=== PATIENT | female | born 1965 | race Caucasian/White ===

== ENCOUNTER → 2017-11-05 | Day surgery (SDC) | payer BC ==
--- NOTE | 2017-11-08 15:21 | PATH ---
Surgical Pathology Report Patient Name: DELL WILBURN [facility]. Rec. #: [id number] /Age/Gender: 1965 (Age: 51) / F Account: [id number] Location: RADIOLOGY ULRAS Taken: 11/05/2017 Received: 11/05/2017 Reported: 11/08/2017 Physicians: Montana Yepez M.D. Specimen(s) Received RIGHT BREAST 11:00 3.37 CM Clinical History Palpable mass Mammographic findings: Highly suspicious/malignant Ultrasound findings: Highly suspicious/malignant Final Diagnosis RIGHT BREAST MASS, 11:00, ULTRASOUND GUIDED BIOPSY: INVASIVE DUCTAL CARCINOMA, MODERATELY DIFFERENTIATED. DUCTAL CARCINOMA IN SITU (DCIS), INTERMEDIATE NUCLEAR GRADE, CRIBRIFORM PATTERN, WITH NECROSIS. INVASIVE CARCINOMA MEASURES AT LEAST 1.5CM, MEASURED ON THIS SLIDE. Results of Estrogen Receptor (ER) and Progesterone Receptor (MS) studies performed on block "1" at [facility] are as follows: ER (clone [id number] mouse monoclonal antibody by [employer]): 95% nuclear staining with strong intensity (Positive). MS (clone16 mouse monoclonal antibody by Leica): 86% nuclear staining with strong intensity (Positive). Positive and negative controls (internal if applicable) show appropriate results. Formalin fixation and cold ischemic times are within current ASCO/CAP recommendations for ER, MS and Her2 testing. Comment: Immunohistochemical stain E-Cadherin performed and interpreted at [facility] highlighted the tumor cells, consistent with invasive ductal carcinoma. Reports for Her 2 and Ki-67 to follow. Intradepartmental case reviewed with consensus on diagnosis, November 08, 2017. Electronically Signed Nikolas Medina M.D. Addendum Reported: 11/09/2017 Addendum Diagnosis Biomarker Studies Results of Her2 (IHC) & Ki-67 studies performed on this specimen at [place], [place] ([id number]) interpreted at [facility] are as follows: Her2 IHC (EP3 from [employer], formerly known as [id number], using Monzon Polymer Refine detection kit): 3+ (positive) Ki-67: 40~50% (high proliferative index) Nikolas Medina M.D. Gross Description Received in formalin labeled "right 11:00," are 4 grossman-yellow, cylindrical portions of fibroadipose tissue ranging from 0.4-1.5 cm in length and averaging 0.1 cm in diameter. The specimens are submitted in toto in one cassette. Time to formalin fixation: Less than one minute Total formalin fixation time: Approximately 9 hours. 11/05/2017 and 11/05/2017
== END | disposition home or self-care (01) ==
LOC: JRADUS-SUR 07:49
PROVIDERS: ATTEND Surgery Surgical Oncology
PROC: 0HBT3ZX Excision of Right Breast, Percutaneous Approach, Diagnostic (ICD-10-PCS; principal; 2017-11-05)
DX: C50.811 Malignant neoplasm of overlapping sites of right female breast (principal); Z17.0 Estrogen receptor positive status [ER+]
CPT/HCPCS: 19083; 87899; 88305-TC; 88342-TC; A4648

== ENCOUNTER → 2017-11-18 | Day surgery (SDC) | payer BC ==
--- NOTE | 2017-11-19 15:25 | PATH ---
Surgical Pathology Report Patient Name: DELL WILBURN [facility]. Rec. #: [id number] /Age/Gender: 1965 (Age: 51) / F Account: [id number] Location: Taken: 11/18/2017 Received: 11/18/2017 Reported: 11/19/2017 Physicians: Jaciel Pino M.D. Abraham Campos M.D. Specimen(s) Received BREAST CORE BIOPSY Clinical History Newly diagnosed right breast cancer; Very suspicious enhancing mass right 10:00 Final Diagnosis RIGHT BREAST MASS, 10:00, CORE BIOPSY: INVASIVE DUCTAL CARCINOMA, MODERATELY TO POORLY DIFFERENTIATED. CARCINOMA MEASURES AT LEAST 0.5 CM IN LENGTH MEASURED ON THIS SLIDE. Results of Estrogen Receptor (ER) and Progesterone Receptor (TX) studies performed on block "1" at [facility] are as follows: ER (clone [id number] mouse monoclonal antibody by Le[employer]): 60% nuclear staining with moderate intensity (Positive). TX (clone16 mouse monoclonal antibody by [employer]): 50% nuclear staining with strong intensity (Positive). Positive and negative controls (internal if applicable) show appropriate results. Formalin fixation and cold ischemic times are within current ASCO/CAP recommendations for ER, TX and Her2 testing. Reports for Her 2 and Ki-67 to follow. Electronically Signed Nikolas Medina M.D. Addendum Reported: 11/23/2017 Addendum Diagnosis Biomarker Studies Results of Her2 (IHC) & Ki-67 studies performed on this specimen at [place], [place] ([id number] ) interpreted at [facility] are as follows: Her2 IHC (EP3 from [employer], formerly known as [id number], using Monzon Polymer Refine detection kit): 3+ (positive) Ki-67: ~50% (high proliferative index) Nikolas Medina M.D. Gross Description Received in formalin labeled "right breast," is a 1.7 x 1.7 x 0.3 cm. aggregate of multiple grossman-yellow, irregular to cylindrical portions of fibroadipose tissue. The formalin is filtered and the specimen is entirely submitted in one cassette. Time to formalin fixation: 2 minutes Total formalin fixation time: Approximately 8 hours saudi/11/18/2017
== END | disposition home or self-care (01) ==
LOC: FRADUS-SUR 12:48
PROVIDERS: ATTEND Surgery Surgical Oncology
PROC: 0HBT3ZX Excision of Right Breast, Percutaneous Approach, Diagnostic (ICD-10-PCS; principal; 2017-11-18)
DX: C50.411 Malignant neoplasm of upper-outer quadrant of right female breast (principal); Z17.0 Estrogen receptor positive status [ER+]; N63.11 Unspecified lump in the right breast, upper outer quadrant
CPT/HCPCS: 19085; 77065-TC; 88305-TC; A4648; C1887

== ENCOUNTER 2018-04-28 11:00 | Inpatient (IN) | payer BC ==
[2018-04-21 10:43] VITALS: BMI 28.2
--- NOTE | 2018-04-26 16:02 | HP ---
Admitting History and Physical - Primary Care Physician PCP: Jaciel Pino - Admission Chief Complaint: right breast cancer History of Present Illness: Patient is a 52 yo female who noted a right breast mass on self exam in October 2017. Patient underwent a mammo and US which revealed a right breast mass at 11 :00 (approx 2.7 cm). Patient underwent an US guided core bx on 11/18/2017 which was c/w invasive ductal carcinoma ER/UT pos Her 2 positive. Patient underwent an MRI which was c/w known cancer as well as right 10 oclock mass approx. 3.7 cm posterior to known cancer. Focused US was negative in this area, therefore an MRI guided core was done 11/18 which revealed invasive ductal carcinoma as well. Patient underwent neoadjuvant chemo and followup MRI was c/w complete response. Patient is now presenting for right mastectomy with reconstruction, right snl, lympho possible andx. History Source: Patient Limitations to Obtaining History: No Limitations - Past Medical History ...LMP: 12/09/17 Endocrine: Yes: Hypothyroidism - Past Surgical History Past Surgical History: Yes: None - Advance Directives Advance Directives: Yes: Health Care Proxy - Smoking History Smoking history: Never smoked Have you smoked in the past 12 months: No - Alcohol/Substance Use Hx Alcohol Use: Yes (3 WKLY) Home Medications - Allergies Allergies/Adverse Reactions: Allergies Allergy/AdvReac Type Severity Reaction Status Date / Time No Known Drug Allergies Allergy Verified 04/21/18 10:33 - Home Medications Home Medications: Ambulatory Orders Levothyroxine [Synthroid -] 150 mcg PO DAILY 04/21/18 Loperamide HCl [Imodium -] 2 mg PO Q8H PRN 04/21/18 Loratadine [Claritin] 10 mg PO DAILY 04/21/18 Omeprazole 20 mg PO DAILY 04/21/18 Simethicone 180 mg PO DAILY 04/21/18 Family Disease History - Family Disease History Family Disease History: CA: Brother (renal cell at 53) Review of Systems - Review of Systems Constitutional: reports: No Symptoms Cardiovascular: reports: No Symptoms Respiratory: reports: No Symptoms Physical Examination Constitutional: Yes: Well Nourished, Calm Breast(s): Yes: Other (Ptotic D-cup breasts. The previous palpable right 11 oclcock periareolar mass is no longer felt after chemo. No suspicious adenopathy was noted bilaterally.) Problem List - Problems (1) Breast cancer, right Code(s): C50.911 - MALIGNANT NEOPLASM OF UNSP SITE OF RIGHT FEMALE BREAST Qualifiers: Breast location: upper outer quadrant of breast Estrogen receptor status: positive Patient sex: female Qualified Code(s): C50.411 - Malignant neoplasm of upper-outer quadrant of right female breast; Z17.0 - Estrogen receptor positive status [ER+] Assessment/Plan right mastectomy with snbx, poss andx, lymphoscintogram and reconstruction
[2018-04-28] MEDS ORDERED: ceFAZolin SODIUM 1 GM VIAL ONE ×2 (13:11→13:13)
[2018-04-28] MEDS ORDERED: DEXAMETHASONE SOD PHOSPHATE 4 MG/1 ML VIAL ONE (13:11)
[2018-04-28] MEDS ORDERED: ONDANSETRON 4 MG/2 ML VIAL ONE (13:11)
[2018-04-28] MEDS ORDERED: MIDAZOLAM HCL 2 MG/2 ML SINGLE DOSE VIAL ONE ×2 (13:12→14:10)
[2018-04-28] MEDS ORDERED: PROPOFOL 20 ML ONE (13:12)
[2018-04-28] MEDS ORDERED: fentaNYL CITRATE 250 MCG/5 ML VIAL ONE ×2 (13:12→16:18)
[2018-04-28] MEDS ORDERED: ROCURONIUM BROMIDE 50 MG/5 ML VIAL ONE ×2 (13:12→16:13)
[2018-04-28] MEDS ORDERED: GENTAMICIN SO4 80 MG/2 ML VIAL ONE (13:13)
[2018-04-28] MEDS ORDERED: ISOSULFAN BLUE 10 MG/ML VIAL SQ ONE (13:13)
[2018-04-28] MEDS ORDERED: BUPIVACAINE HCL/PF 0.5% (5MG/ML) 10 ML VIAL ONE ×2 (13:22→16:19)
[2018-04-28] MEDS ORDERED: GUM MASTIC/STORAX/MSAL/ALCOHOL 1 DRP DROPSBTL MC ONE (13:23)
[2018-04-28] MEDS ORDERED: DESFLURANE GAS 240 ML BOTTLE IH ONE (14:52)
[2018-04-28] MEDS ORDERED: ONDANSETRON 4 MG/2 ML VIAL IVPUSH PRN ×2 (16:18→16:29)
[2018-04-28] MEDS ORDERED: PROMETHAZINE HCL 25 MG/1 ML VIAL IVPUSH PRN (16:18)
[2018-04-28] MEDS ORDERED: oxyCODONE HCL 5 MG TABLET PO PRN (16:18)
[2018-04-28] MEDS ORDERED: BUPIVACAINE LIPOSOME/PF (EXPAREL) 266 MG/20 ML VIAL ONE ×2 (16:19→16:26)
[2018-04-28] MEDS ORDERED: SODIUM CHLORIDE 0.9% P/F 10 ML VIAL IJ ONE ×2 (16:20→16:26)
[2018-04-28] MEDS ORDERED: ZOLPIDEM TARTRATE 5 MG TABLET PO PRN (16:29)
[2018-04-28] MEDS ORDERED: ACETAMINOPHEN 325 MG TABLET (FP) PO PRN (16:29)
[2018-04-28] MEDS ORDERED: DEXTROSE 5%-0.45% SALINE 1,000 ML IV SCH (16:30)
[2018-04-28] MEDS ORDERED: LACTATED RINGERS SOLUTION 1,000 ML IV SCH (16:30)
[2018-04-28] MEDS ORDERED: BUPIVACAINE LIPOSOME/PF (EXPAREL) 266 MG/20 ML VIAL IJ ONE (16:55)
[2018-04-28] MEDS ORDERED: BUPIVACAINE HCL 0.5% 250 MG/50 ML VIAL IJ ONE (16:55)
[2018-04-28] MEDS ORDERED: NEOSTIGMINE METHYLSULFATE 0.5 MG/ML - 10 ML MDV ONE (17:01)
[2018-04-28] MEDS: ACETAMINOPHEN 1000 MG/100 ML VIAL (NON FORMULARY) IVPB ONE ×2 (18:00→18:48)
--- NOTE | 2018-04-28 20:38 | SURG ---
Surgery Filament Tester Note Filament Tester: Austin Mccormack PA-C Date of Service: 04/28/18 Diagnosis: Right breast cancer Procedure: Right breast reconstruction with alloderm and silcone implant I was present for the entirety of the operative procedure. For further detail, please refer to operative report. Visit type - Case Type Case Type: Scheduled - New patient This patient is new to me today: Yes Date on this admission: 04/28/18
[2018-04-28] MEDS: CEFAZOLIN 1 GM/D5W 1 GM/50 ML BAG IVPB SCH (20:46)
--- NOTE | 2018-04-28 21:06 | OP ---
DATE OF OPERATION: 04/28/2018 PREOPERATIVE DIAGNOSIS: Right breast upper outer quadrant breast cancer. POSTOPERATIVE DIAGNOSIS: Right breast upper outer quadrant breast cancer. PROCEDURE: Right breast total mastectomy with right axillary sentinel lymph node biopsy and jtczlu-es-uncvzbc reconstruction by Plastic Surgery. PRIMARY SURGEON: Kia Dawn MD PARASITOLOGIST: PAU Arellano PRIMARY SURGEON FOR THE [id number] RECONSTRUCTION: Kia Monge MD ANESTHESIA: General endotracheal. COMPLICATIONS: None. Briefly, the patient is a 52-year-old, nulliparous, perimenopausal white female of [place] descent. She has no family history of breast or ovarian cancer. She was found to have a palpable right breast, 11 o'clock, periareolar mass measuring about 2.7 x 2 x 1.9 cm on ultrasound with a spiculated lesion on mammography in October 2017. Ultrasound-guided core biopsy showed a moderately differentiated, invasive duct cancer which was ER/MO positive, HER2 3+ with a Ki-67 of 40%. MRI showed the main cancer with a separate 1-cm density 3.7 cm posterior to the main cancer. MRI-guided core biopsy of the separate area turned out to be a separate focus of the same cancer. She was a candidate for neoadjuvant chemotherapy and underwent TCHP chemotherapy through Dr. Audrey Ace of [place]. Followup MRI showed a complete radiologic response. She now presents for right breast total mastectomy and right axillary sentinel lymph node biopsy and was seen by Plastic Surgery and decided to go forward with uorthb-ek-ntsiqxh reconstruction. The patient understood the procedure and was brought in on April 28, 2018, and first underwent the lymphoscintigraphy through a periareolar injection of technetium 99 at [facility] and then was brought to the [facility]. In the holding area, site verification was made, and informed consent was obtained. She was brought into the operating room and laid on the OR table in the supine position. Venodynes were placed on the lower extremities prior to induction. She received 2 g of Ancef prior to incision. Both breasts were sterilely prepped and draped in usual fashion, and she underwent general endotracheal anesthesia. Next, 3 mL of Lymphazurin blue were injected intradermally around the right breast periareolar region, and massage was instituted. The right axillary sentinel lymph node biopsy was first performed. Incision was made just below the hair-bearing area of the right axilla and dissection was undertaken and 3 blue hot lymph nodes were easily found in the level I/level II region of the right axilla. The first sentinel lymph node had a 10-second gamma count [place] 3783, the second sentinel lymph node had a 10-second gamma count of 5051, and the third sentinel lymph node had a 10-second gamma count of 18,158. Background count after removal of these 3 nodes was 164. They were all sent for frozen section and came back benign; so, no further nodes were removed. At this point, the mastectomy was performed using a fairly wide, elliptical incision encompassing the nipple-areolar complex and removing the skin from most of the lower pole of the right breast which was marked out preoperatively by plastic surgeon to perform somewhat of a reduction mastopexy during the mastectomy. The large elliptical incision was made encompassing the entire nipple-areolar complex, and skin flaps were raised superiorly to the level of the clavicle, medically to the level of the sternum, laterally to the level of the latissimus, and inferiorly below the level of the inframammary fold. The Travergence radiofrequency device was used to raise the skin flaps. The breast was then taken down off the pectoralis major muscle using electrocautery from medial to lateral, completely removed intact. It was oriented with a long lateral/short superior suture and sent for specimen radiograph, showed removal of both clips in question. Hemostasis was achieved, and then, the breast was placed in formalin to be sent down to Pathology. A separate anterior margin was taken underneath the area centrally where the skin flap was raised and sent separately as anterior margin with a suture marking the biopsy cavity side. Hemostasis was achieved, and the wound was copiously irrigated. At this point, Dr. Monge became the primary surgeon and performed the bhmxkq-om-esfgigx reconstruction in the subpectoral location using AlloDerm sutured into the inferolateral aspect of the pectoralis major muscle to allow for the rgcvug-iv-ifbjjye reconstruction. Two Yogi drains will be placed around the implant and brought through separate stab incisions on the lateral skin flap and secured in place using 3-0 nylon sutures. All wounds will be closed by Plastic Surgery using interrupted 3-0 deep dermal PDS suture and a running 4-0 subcuticular PDS suture. Mastisol and Steri-Strips were applied over the wounds, and the drains will be placed on REY self-bulb suction. The patient tolerated the procedure well. Estimated blood loss was about 100 mL, and she was hemodynamically stable throughout. We did use the SPY skin perfusion device both after the mastectomy and after the reconstruction, showing good skin perfusion of the skin flaps. The patient will be extubated at the end of the case and brought to the postanesthesia care unit. She will be recovered and admitted postoperatively for pain and wound management. Again, all sponge and needle counts were correct at the end of the case, and estimated blood loss was about 100 mL. KIA DAWN M.D. [id number]
[2018-04-29] MEDS: CEFAZOLIN 1 GM/D5W 1 GM/50 ML BAG IVPB SCH ×2 (03:16→09:13)
[2018-04-29 06:49] VITALS: BP 136/70; PULSE 88; TEMP 97.5
[2018-04-29] MEDS ORDERED: LEVOTHYROXINE NA 150 MCG TABLET PO SCH (07:00)
[2018-04-29 07:27] LABS: HEMATOCRIT 30.9 % (32.4-45.2); MCHC 32.3 g/dl (32.0-36.0); MEAN CELL VOLUME 111.7 fl (80-96); MEAN PLT VOLUME 6.6 fl (7.5-11.1); PLATELET COUNT 336 K/MM3 (134-434); RBC 2.77 M/mm3 (3.60-5.2); RDW 14.7 % (11.6-15.6)
--- NOTE | 2018-04-29 09:22 | PN ---
Progress Note, Physician Chief Complaint: S/p right mastectomy with snbx and reconstruction POD#1 History of Present Illness: Patient was seen today at the bedside and reports good pain control. She is tolerating po well and is voiding as well. - Current Medication List Current Medications: Active Medications Acetaminophen (Tylenol -) 650 mg PO Q4H PRN PRN Reason: FEVER Last Admin: 04/29/18 08:00 Dose: 650 mg Heparin Sodium (Porcine) (Heparin -) 5,000 unit SQ BID VINICIUS Cefazolin Sodium (Ancef 1 Gm Premixed Ivpb -) 1 gm in 50 mls @ 100 mls/hr IVPB Q6H-IV VINICIUS Stop: 05/05/18 20:59 Last Admin: 04/29/18 09:13 Dose: 100 mls/hr Dextrose/Sodium Chloride (D5-1/2ns -) 1,000 mls @ 100 mls/hr IV ASDIR VINICIUS Last Admin: 04/28/18 18:48 Dose: Not Given Levothyroxine Sodium (Synthroid -) 150 mcg PO AM VINICIUS Last Admin: 04/29/18 06:21 Dose: 150 mcg Ondansetron HCl (Zofran Injection) 4 mg IVPUSH Q6H PRN PRN Reason: NAUSEA AND/OR VOMITING Last Admin: 04/28/18 18:45 Dose: 4 mg Oxycodone HCl (Roxicodone -) 5 mg PO Q4H PRN PRN Reason: PAIN LEVEL 6-10 Last Admin: 04/28/18 23:40 Dose: 5 mg Zolpidem Tartrate (Ambien -) 5 mg PO HS PRN PRN Reason: Insomnia - Objective Vital Signs: Vital Signs Temperature 97.5 F L 04/29/18 06:00 Pulse Rate 88 04/29/18 06:00 Respiratory Rate 18 04/29/18 06:00 Blood Pressure 136/70 04/29/18 06:00 O2 Sat by Pulse Oximetry (%) 99 04/29/18 06:00 Constitutional: Yes: Well Nourished, Calm Breast(s): Yes: Other (The right mastectomy flap with some ecchymosis otherwise steristrips are intact without erythema or discharge. JPs are intact.) Labs: CBC, BMP 04/29/18 07:00 Problem List - Problems (1) Breast cancer, right Code(s): C50.911 - MALIGNANT NEOPLASM OF UNSP SITE OF RIGHT FEMALE BREAST Qualifiers: Breast location: upper outer quadrant of breast Estrogen receptor status: positive Patient sex: female Qualified Code(s): C50.411 - Malignant neoplasm of upper-outer quadrant of right female breast; Z17.0 - Estrogen receptor positive status [ER+] Assessment/Plan POD #1 S/P mastectomy with snbx and implant reconstruction Plan: OOB today with assistance Teach REY monitoring Plan for discharge today on pain meds F/U next week with Dr. Pino and Dr. Monge
--- NOTE | 2018-04-29 10:14 | PN ---
Progress Note (short form) - Note Progress Note: POD #1 - s/p right mastectomy. VSS. Pt. doing well, resting comfortably in bed. No complaints. No apparent anesthetic complications noted. Continue current care.
[2018-04-29] MEDS ORDERED: HEPARIN NA (PORCINE) 5,000 UNITS/ML 1ML VIAL SQ SCH (22:00)
--- NOTE | 2018-05-02 08:44 | OP ---
DATE OF OPERATION: 04/28/2018 PREOPERATIVE DIAGNOSES: 1. 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 2. Personal history of genetic carcinoma. POSTOPERATIVE DIAGNOSES: 1. 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 2. Personal history of genetic carcinoma. PROCEDURE: 1. Right immediate breast reconstruction utilizing immediate insertion of silicone breast implant and AlloDerm reconstruction. 2. Intravenous injection of indocyanine green dye and intraoperative diagnostic evaluation of non-coronary intraoperative fluorescein vascular angiography x 2. SURGEON: Dr. Zunilda Monge ANESTHESIA: GENERAL OPERATIVE PROCEDURE IN DETAIL: The patient was taken to the operating room. After induction of general anesthesia in the supine position, both arms were extended and padded. Venodyne boots were placed. The entire chest wall was painted with ChloraPrep solution over its entire extent, and sterile drapes were placed in the usual fashion. The markings, which had been made in the standing position preoperatively, were reoutlined with the patient's knowledge. Time-out procedure was performed. Attention was turned by Dr. Pino to the mastectomy. Bilateral inframammary incisions were made and Dr. Pino performed mastectomy. This will be dictated under separate cover. Upon completion of the mastectomy, the wounds were copiously irrigated and attention was turned to the right breast. A subpectoral dissection was begun on the right breast, superiorly from the second rib, medially to the sternal fibers, and down to the inframammary fold, elevating the pectoralis major muscle from its insertion. At this point, an 8.0 x 16.0 contour medium perforated thick sheet of AlloDerm was brought into the field and sutured superiorly along the pectoralis major muscle after rehydration. This was carried along the lateral mammary fold and down the side of the breast reconstruction. At this point, a [employer] SoftTouch Style SSF 485 mL volume implant was chosen. The right breast tissue removed was gm. This implant was placed and then sutured with 3-0 Vicryl suture continued along the inframammary fold, completely covering the implant itself. After the implant was in place, the patient was injected with 10 mL of Isocyanide green dye and the Spy imaging system was brought into the field. The skin flowed to the right and left breasts and the nipple areolar complex, and the entire skin flaps were evaluated and seen to be viable with good blood flow. A Yogi drain was brought out through separate stab wound laterally. The Smart Infuser pump catheter was inserted medially and into the subpectoral position. The wound was closed symmetrically using 3-0 PDS suture on the deep tissue, 3-0 in a deep dermal fashion, and 4-0 in a subcuticular fashion. The wound was dressed sterilely with Mastisol and Steri-Strips with a surgical bra and a compression strap. The patient tolerated the procedure well. She was awakened, extubated and transferred to the recovery room in satisfactory condition. The assistant pastry chef was present during the entire portion of the operation and closure. KIA MONGE M.D. DONAVON/[id number]
--- NOTE | 2018-05-04 12:10 | PATH ---
Surgical Pathology Report Patient Name: DELL WILBURN Med. Rec. #: [id number] /Age/Gender: 1965 (Age: 52) / F Account: [id number] Location: [facility] MED-SURG Taken: 04/28/2018 Received: 04/28/2018 Reported: 05/04/2018 Physicians: Jaciel Pino M.D. Specimen(s) Received A: RIGHT AXILLARY SENTINEL LYMPH NODE # 1 (FS) B: RIGT AXILLARY SENTINEL LYMPH NODE # 2 (FS) C: RIGHT AXILLARY SENTINEL LYMPH NODE # 3 (FS) D: RIGHT BREAST TOTAL MASTECTOMY E: RIGHT BREAST ANTERIOR MARGIN Clinical History Right IDC s/p neoadjuvant CTX (Her2+) Intraoperative Consult Diagnosis A. Right axillary sentinel node #1, frozen section: One negative lymph node. B. Right axillary sentinel node #2, frozen section: One negative lymph node. C. Right axillary sentinel node #3, frozen section: One negative lymph node. Renay Jasmine M.D., 04/28/2018 Final Diagnosis A. LYMPH NODE, RIGHT AXILLARY SENTINEL #1, EXCISION (FS): ONE LYMPH NODE, NEGATIVE FOR METASTATIC CARCINOMA ON H&E STAINED SECTIONS AND CYTOKERATIN (AE 1/3) IMMUNOSTAIN (0/1). B. LYMPH NODE, RIGHT AXILLARY SENTINEL #2, EXCISION (FS): ONE LYMPH NODE, NEGATIVE FOR METASTATIC CARCINOMA ON H&E STAINED SECTIONS AND CYTOKERATIN (AE 1/3) IMMUNOSTAIN (0/1). C. LYMPH NODE, RIGHT AXILLARY SENTINEL #3, EXCISION (FS): ONE LYMPH NODE, NEGATIVE FOR METASTATIC CARCINOMA ON H&E STAINED SECTIONS AND CYTOKERATIN (AE 1/3) IMMUNOSTAIN (0/1). D. BREAST, RIGHT, TOTAL MASTECTOMY: BENIGN BREAST TISSUE SHOWING DENSE HYALINIZING FIBROSIS WITH HISTIOCYTIC REACTION, CONSISTENT WITH TREATED TUMOR BED TISSUE. NO RESIDUAL CARCINOMA IS IDENTIFIED. REMAINING BREAST TISSUE SHOWS LOBULAR CARCINOMA IN SITU (LCIS), CLASSICAL TYPE, ATYPICAL DUCTAL HYPERPLASIA (ADH), COLUMNAR CELL CHANGE, SCLEROSING ADENOSIS, MICROCYSTS AND ASSOCIATED CALCIFICATIONS. (SEE NOTE) NIPPLE AND SKIN WITH NO PATHOLOGIC FINDINGS. PRIOR BIOPSY SITE CHANGES ARE IDENTIFIED (TWO SEPARATE SITES). PATHOLOGIC STAGE (ypTNM): ypT0 ypN0. Note: Immunohistochemical stains performed at [facility] show the following results: Myoepithelial immunohistochemical markers (SMM-HC & p63; block D7) demonstrate the presence of myoepithelial cells in the foci of sclerosing adenosis. E-cadherin immunostains (blocks D7, D8) demonstrate lack of staining in the foci of LCIS. These findings support the diagnosis. See also prior right breast core biopsies from October 2017 ([id number], [id number]). E. BREAST, RIGHT, ANTERIOR MARGIN, EXCISION: BENIGN BREAST TISSUE. Electronically Signed Lily Jasmine M.D. Gross Description A. Received fresh labeled "right axillary sentinel node #1," is a 0.8 x 0.7 x 0.4 cm lymph node with attached fatty tissue. A frozen section is performed on the lymph node. The frozen section residue is entirely submitted in one cassette. B. Received fresh labeled "right axillary sentinel node #2," is a 0.4 x 0.3 x 0.2 cm lymph node. A frozen section is performed on the lymph node. The frozen section residue is entirely submitted in one cassette. C. Received fresh labeled "right axillary sentinel lymph node #3," is a 1.4 x 1.0 x 0.4 cm lymph node with attached fatty tissue. A frozen section is performed on the lymph node. The frozen section residue is entirely submitted in one cassette. D. Received in formalin, labeled "right breast total mastectomy," is a 1273 gram, 23.0 x 19.0 x 4.7 cm. right mastectomy specimen with a short suture marking the superior aspect and a long suture marking the lateral aspect of the specimen, per the surgeon. The anterior surface displays a 16.5 x 10.0 cm grossman portion of skin with a 1.8 cm diameter nipple. The deep margin is inked black and the anterior soft tissue margin is inked blue. The specimen is serially sectioned from lateral to medial. Sectioning reveals a 2.8 x 2.0 x 1.5 cm ill-defined focus of firm fibrous tissue in the upper outer quadrant (UOQ). There is a jansen metallic biopsy clip identified within the focus of tissue. There is a hemorrhagic biopsy site associated with the firm focus, abutting the anterior soft tissue margin. No definitive residual mass is identified. There is a second biopsy site containing a melendez metallic clip identified also within the UOQ. This second biopsy site is approximately 2 cm from the first biopsy site and 1 cm from the anterior soft tissue margin. No definitive mass is associated with this second biopsy site. The remaining breast parenchyma displays abundant dense, white, focally firm fibrous tissue. School Psychology Specialist sections are submitted in 23 cassettes as follows: 9-1-xphxjkjc sectioned nipple; 3-subareolar shave; 4-9-UOQ focus of firm fibrous tissue from area of biopsy clip; 43-90-hvvmpf site associated with firm focus; 49-61-yhobfm UOQ biopsy site; 14-uninvolved UOQ tissue; 15-16-lower outer quadrant; 17-18-upper inner quadrant; 19-20-lower inner quadrant; 21-retroareolar tissue; 22-skin; 23-deep margin. Time to formalin fixation: Not given Total formalin fixation time: Approximately 24 hours E. Received in formalin labeled "right breast anterior margin," is a 4.2 x 3.0 x 1.0 cm portion of fibroadipose tissue with a suture marking the biopsy cavity side, per the surgeon. The new margin is inked blue and the specimen is serially sectioned. The specimen is entirely and sequentially submitted in 6 cassettes. 04/28/2018 saudi04/28/2018
== END 2018-04-29 13:29 | disposition home or self-care (01) | DRG 578 ==
LOC: FM/S 11:41
PROVIDERS: ADMIT Surgery Surgical Oncology; ATTEND Plastic Surgery
PROC: 0HRT0JZ Replacement of Right Breast with Synthetic Substitute, Open Approach (ICD-10-PCS; 2018-04-28)
PROC: 4A1GXSH Monitoring of Skin and Breast Vascular Perfusion using Indocyanine Green Dye, External Approach (ICD-10-PCS; 2018-04-28)
PROC: 0HTT0ZZ Resection of Right Breast, Open Approach (ICD-10-PCS; principal; 2018-04-28 14:42)
PROC: 07B50ZX Excision of Right Axillary Lymphatic, Open Approach, Diagnostic (ICD-10-PCS; 2018-04-28 14:42)
PROC: [UNRECOGNIZED PROCEDURE] (2018-04-28 14:42)
DX: C50.411 Malignant neoplasm of upper-outer quadrant of right female breast (principal); Z17.0 Estrogen receptor positive status [ER+]; E03.9 Hypothyroidism, unspecified; Z80.51 Family history of malignant neoplasm of kidney
CPT/HCPCS: 36415; 78195-TC; 84703; 85027; 88307-TC; 88331-TC; 88341-TC; 88342-TC; 94760; A9541; J0131

== ENCOUNTER 2018-07-29 06:06 | Day surgery (SDC) | payer BC ==
[2018-07-28 09:59] VITALS: BMI 25.7
[2018-07-29] MEDS ORDERED: ceFAZolin SODIUM 1 GM VIAL ONE ×2 (07:35→08:10)
[2018-07-29] MEDS ORDERED: GENTAMICIN SO4 80 MG/2 ML VIAL ONE (07:35)
[2018-07-29] MEDS ORDERED: LIDOCAINE 1%-EPI 1:100,000 30 ML MDV IJ ONE (07:35)
[2018-07-29] MEDS ORDERED: EPINEPHrine/PF 1 MG/1 ML (1:1,000) AMPULE ONE (08:00)
[2018-07-29] MEDS ORDERED: LIDOCAINE HCL 1%, 10 MG/ML (20ML VIAL) ONE (08:00)
[2018-07-29] MEDS ORDERED: BENZOIN TINCTURE SWABSTICK TP ONE (08:01)
[2018-07-29] MEDS ORDERED: PROPOFOL 20 ML ONE ×2 (08:02)
[2018-07-29] MEDS ORDERED: MIDAZOLAM HCL 2 MG/2 ML SINGLE DOSE VIAL ONE (08:02)
[2018-07-29] MEDS ORDERED: LIDOCAINE HCL/PF 2% SDV 5ML VIAL ONE (08:02)
[2018-07-29] MEDS ORDERED: DEXAMETHASONE SOD PHOSPHATE 4 MG/1 ML VIAL ONE (08:45)
[2018-07-29] MEDS ORDERED: LIDOCAINE HCL 1%, 10 MG/ML (20ML VIAL) NR ONE (08:54)
[2018-07-29] MEDS ORDERED: LIDOCAINE 1%/EPI 1:100000 (20 ML MULTI DOSE VIAL) IJ ONE ×3 (08:55→08:59)
[2018-07-29] MEDS ORDERED: BACITRACIN 50,000 UNITS VIAL NR ONE (08:56)
[2018-07-29] MEDS ORDERED: ceFAZolin SODIUM 1 GM VIAL IVPB ONE (08:57)
[2018-07-29] MEDS ORDERED: GENTAMICIN SO4 80 MG/2 ML VIAL IVPB ONE (08:58)
[2018-07-29] MEDS ORDERED: ONDANSETRON 4 MG/2 ML VIAL IVPUSH PRN (10:37)
[2018-07-29] MEDS ORDERED: oxyCODONE HCL 5 MG TABLET PO PRN (10:37)
[2018-07-29] MEDS ORDERED: IBUPROFEN 800 MG/8 ML IJ IVPB PRN (10:37)
[2018-07-29] MEDS ORDERED: ACETAMINOPHEN 1000 MG/100 ML VIAL (NON FORMULARY) IVPB PRN (10:38)
[2018-07-29] MEDS ORDERED: ACETAMINOPHEN INJECTION 100 ML IVPB ONE (10:42)
[2018-07-29] MEDS ORDERED: LACTATED RINGERS SOLUTION 1,000 ML IV SCH (10:45)
--- NOTE | 2018-07-29 11:00 | OP ---
Operative Note - Note: Operative Date: 07/29/18 Pre-Operative Diagnosis: aCQUIRED CHEST WALL dEFORMITY Operation: bILATERAL RECONSTRUCTION WITH OTHER TECHNIQUE. RIGHT NIPPLE RECON. LEFT BREAST REDUCTION Implants: [facility] 605CC Surgeon: Jean-Paul Monge Toe Former Stitchdowns: Austin Mccormack Anesthesia: General Specimens Removed: BREAST TISSUE BILATERAL Estimated Blood Loss (mls): 25 Operative Report Dictated: Yes
--- NOTE | 2018-07-29 11:33 | SURG ---
Surgery Shovel Handle Assembler Note Shovel Handle Assembler: Austin Mccormack PA-C Date of Service: 07/29/18 Diagnosis: History of breast cancer. Acquired chest wall deformity. Procedure: Bilateral breast reconstruction with other technique. Right breast implant exchange. Right nipple reconstruction. Left breast reduction. I was present for the entirety of the operative procedure. For further detail, please refer to operative report. Visit type - Case Type Case Type: Scheduled - New patient This patient is new to me today: Yes Date on this admission: 07/29/18
[2018-07-29 12:29] VITALS: TEMP 97.8
[2018-07-29 12:58] VITALS: PULSE 80
[2018-07-29 14:24] VITALS: BP 132/84
--- NOTE | 2018-07-31 09:33 | OP ---
DATE OF OPERATION: 07/29/2018 SURGEON: Kia Monge MD CHIEF WHEELAGE CLERK: Austin Mccormack PA-C PREOPERATIVE DIAGNOSES: 1. 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 2. Asymmetry of reconstructed chest wall. 3. Macromastia of left breast. 4. Absent right breast. POSTOPERATIVE DIAGNOSES: 1. 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 2. Asymmetry of reconstructed chest wall. 3. Macromastia of left breast. 4. Absent right breast. OPERATIVE PROCEDURE: 1. Right breast reconstruction utilizing other technique. 2. Left breast reconstruction utilizing other technique. 3. Capsulectomy removal, and replacement of right breast reconstructive implant. 4. Left breast reduction mammoplasty. 5. Right nipple/areolar reconstruction. 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 Kia Pino and now returns for gross asymmetry of the chest wall after primary reconstruction and required the above procedures. The risks and benefits of surgical versus nonsurgical alternatives as well as the material complications of the procedure were described on multiple occasions preoperatively, including today in the holding area, where she was marked in the standing position for outline of the above procedures. All questions were asked and answered. She agreed to the planned procedure. OPERATIVE PROCEDURE IN DETAIL: The patient was taken to the operating room and, after induction of general anesthesia in the supine position, both arms were extended and padded, Venodyne boots were placed, and attention was turned to the markings. An outline of the markings for reduction as well as the nipple/areolar reconstruction position and reconstruction were all confirmed, remeasured, and reconfirmed. At this point, 1% local lidocaine anesthesia with 1:200,000 epinephrine was injected into the mastectomy scar as well as the planned markings for the other procedures. After allowing topical anesthesia and hemostasis, an incision was made around the mastectomy scar on the right breast, excising the scar and sending this for pathologic diagnosis. Dissection was carried down through the subcutaneous tissue, down to the underlying capsule of the right breast and then performing capsulotomy and capsulectomy. The right breast implant was removed from the pocket. Copious irrigation of the pocket was performed and attention was turned to the left breast. A Swanson pattern incision, which had been planned for left breast reduction, was carried out. This was incised around a No. 42 nipple/areolar cutter and then deepithelialized according to the pattern with inferior glandular pedicle technique. Incisions were made down through the breast tissue, excising a large portion of the breast tissue in the upper/outer quadrant especially, which showed a large collection of cysts and noncancerous lesions. This tissue was excised and sent for pathologic diagnosis. The pedicle was then seen to be well-vascularized. It was tacked into position using 2-0 Vicryl sutures into the deep fascia of the pectoralis muscle and centralized. Copious irrigation was carried out using approximately 1 L of saline and triple antibiotic solution. The standard reconstruction of the breast was then carried out by advancing and closing the skin flaps upon themselves with 2-0 Vicryl suture on the deep tissue, 3-0 Biosyn in a deep dermal fashion, and a subcuticular suture using 3-0 V-Loc suture circumferentially around the nipple/areolar complex and across the incisions in Swanson pattern technique. Good shape and contour were seen and then attention turned to the abdominal wall. Incisions were made in the lower abdomen according to the plan, down through the skin and subcutaneous tissue, down to the underlying abdominal wall musculature. Dissection was carried over the rectus abdominis muscle, lateral oblique muscles, including external and internal oblique, and then harvesting tissue from the lower abdomen and central portions of the belly. This tissue was then transferred to the back table, washed, cleansed, and prepared for reconstruction. Attention was turned back to the reconstructed breast. An implant was chosen for the reconstruction, which was a [employer] SoftTouch breast implant, style SSF, 605 mL volume. This was then placed into the right breast pocket using the Cortez funnel in sterile fashion. This was then repaired using 2-0 Vicryl sutures on the deep tissue in 2 layers, 3-0 Biosyn in a deep dermal fashion, and a subcuticular suture with 3-0 V-Loc. Tissue was then transferred to the central, medial, and superior portions of the right breast through 2 incisions, connecting the upper pockets for reconstruction. This reconstruction with other technique was carried out over the entire area of the breast, replacing the lost volume. Attention was then turned to the right nipple/areolar complex. An incision was made according to the pattern for CV flap and incised down into the dermis and through the subcutaneous tissue, elevating the flap for a nipple/areolar reconstruction. The flaps were then elevated and the donor site closed using 3-0 Biosyn suture, closing the donor site and advancing the tissue upon itself. The flaps were then sutured together using 3-0 Biosyn in a deep dermal fashion and an interrupted and running suture using 5-0 plain catgut sutures. Good shape and contour were seen of the nipple/areolar complex, matching the opposite side. At this point, all wounds were dressed sterilely with Dermabond and the donor site closed with interrupted and running sutures on the lower abdomen. After Dermabond dressing, Steri-Strips and compressive dressings were placed over the breasts. The nipple/areolar reconstruction was protected with a baby nipple in the usual dressing fashion and Fluff dressings and a compression. She was awakened, extubated, and transferred to the recovery room in satisfactory condition in a Surgi-Bra. KIA MONGE M.D. [id number]
--- NOTE | 2018-08-02 13:08 | PATH ---
Surgical Pathology Report Patient Name: DELL WILBURN Med. Rec. #: [id number] /Age/Gender: 1965 (Age: 52) / F Account: [id number] Location: [facility] SURGICAL Taken: 07/29/2018 Received: 07/29/2018 Reported: 08/01/2018 Physicians: Jean-Paul Monge Specimen(s) Received A: RIGHT BREAST MASTECTOMY SCAR B: LEFT BREAST TISSUE AND SKIN C: RIGHT BREAST IMPLANT Clinical History None given Final Diagnosis A. BREAST, RIGHT, MASTECTOMY SCAR, EXCISION: SKIN AND UNDERLYING SUBCUTANEOUS TISSUE WITH CHRONIC INFLAMMATION, DERMAL FIBROSIS, FOREIGN BODY MATERIAL WITH ASSOCIATED FOREIGN BODY GIANT CELL REACTION, AND SUTURE GRANULOMA. B. BREAST TISSUE AND SKIN, LEFT, EXCISION: BENIGN BREAST PARENCHYMA WITH FIBROCYSTIC CHANGES. UNREMARKABLE SKIN. C. BREAST IMPLANT, RIGHT, REMOVAL: BREAST IMPLANT. MACROSCOPIC DIAGNOSIS. Electronically Signed Jacklyn Matute M.D. Gross Description A. Received in formalin labeled "right breast mastectomy scar" is an ellipse of white-grossman skin and underlying subcutaneous tissue which measures 6 x 1 x 0.7 cm. A well healed linear scar is identified on the surface of the skin. Legal Manager sections submitted one cassette. B. Received in formalin labeled "left breast tissue and skin" are multiple irregular fragments of skin and fibroadipose tissue which measures 11 x 11 x 4 cm in aggregate. Cut section is fibrofatty. No masses or hemorrhage identified. Legal Manager sections submitted one cassette. C. Received fresh labeled "right breast implant" is a clear, rubbery, intact breast implant averaging 13 cm in diameter and 4.5 cm in depth. No soft tissue is present. No sections are submitted, gross only. MLSZ/07/29/2018 sanml/07/29/2018
== END 2018-07-29 13:35 | disposition home or self-care (01) ==
LOC: JASU-SURG 06:06
PROVIDERS: ATTEND Plastic Surgery
PROC: 0HUT0JZ Supplement Right Breast with Synthetic Substitute, Open Approach (ICD-10-PCS; 2018-07-29)
PROC: 0HSWXZZ Reposition Right Nipple, External Approach (ICD-10-PCS; 2018-07-29)
PROC: 0HBU0ZZ Excision of Left Breast, Open Approach (ICD-10-PCS; 2018-07-29)
PROC: 0HRV07Z Replacement of Bilateral Breast with Autologous Tissue Substitute, Open Approach (ICD-10-PCS; principal; 2018-07-29 08:42)
PROC: 0HPT0JZ Removal of Synthetic Substitute from Right Breast, Open Approach (ICD-10-PCS; 2018-07-29 08:42)
DX: M95.4 Acquired deformity of chest and rib (principal); Z90.11 Acquired absence of right breast and nipple; N65.1 Disproportion of reconstructed breast; N62 Hypertrophy of breast
CPT/HCPCS: 84703; 88300-TC; 88304-TC; 88305-TC; 94760; J0131